=== PATIENT | female | born 1990 | race Caucasian/White ===

== ENCOUNTER 2017-12-31 10:06 | Emergency (ER) | payer OTHER ==
[~2017-12-31] VITALS: Ht 160 cm; Wt 50.3 kg
== END 2017-12-31 18:00 | disposition home or self-care (01) ==
LOC: ER 10:06
DX: K29.70 Gastritis, unspecified, without bleeding (principal); K59.09 Other constipation

== ENCOUNTER 2018-03-23 11:07 | Emergency (ER) | payer OTHER ==
[~2018-03-23] VITALS: Ht 157.5 cm; Wt 52.2 kg
[2018-03-23] MEDS ORDERED: ASPIR-TRIN325 MG (11:17)
== END 2018-03-23 16:03 | disposition home or self-care (01) ==
LOC: ER 11:07
DX: R42 Dizziness and giddiness (principal)

== ENCOUNTER 2018-11-13 09:28 | Emergency (ER) | payer OTHER ==
[~2018-11-13] VITALS: Ht 170.2 cm; Wt 59.0 kg
[~2018-11-13 09:28] MED LIST: ASPIR-TRIN325 MG
[2018-11-13] MEDS ORDERED: OMEPRAZOLE10 MG PO (09:35)
== END 2018-11-13 13:24 | disposition home or self-care (01) ==
LOC: ER 09:28
DX: B34.9 Viral infection, unspecified (principal)

== ENCOUNTER 2019-05-15 10:29 | Day surgery (SDC) | payer OTHER ==
[~2019-05-15 10:29] MED LIST changes: +OMEPRAZOLE10 MG PO
== END 2019-05-15 15:35 | disposition home or self-care (01) ==
LOC: AMB-ENDOS 10:29
DX: K29.30 Chronic superficial gastritis without bleeding (principal); K21.9 Gastro-esophageal reflux disease without esophagitis

== ENCOUNTER 2019-06-12 05:43 | Day surgery (SDC) | payer OTHER | END 2019-06-12 09:10 | disposition home or self-care (01) | LOC: AMB-ENDOS 05:43 | DX: K59.09 Other constipation (principal); Z12.11 Encounter for screening for malignant neoplasm of colon ==

== ENCOUNTER 2019-07-09 05:40 | Day surgery (SDC) | payer OTHER ==
[2019-07-09] MEDS ORDERED: ULTRACET PO (11:49)
[2019-07-09] MEDS ORDERED: PROTONIX40 MG PO (11:49)
== END 2019-07-09 14:00 | disposition home or self-care (01) ==
LOC: CIR.AMB 05:40 → ADM 08:45 → CIR.AMB 14:00
DX: K81.1 Chronic cholecystitis (principal)